=== PATIENT | male | born 1965 | race Caucasian/White ===

== ENCOUNTER 2022-10-06 10:03 | Emergency (ER) | payer OTHER ==
[2022-10-06] MEDS ORDERED: D50W 50 ml Abboject IV ONE ×2 (10:20→10:32)
[2022-10-06 10:25] LABS: Absolute Neutrophil Ct (ANC) 7.15 x10^3/uL (1.4-6.9); BASOPHIL % 0.2 % (0.0-0.4); Basophil (Absolute #) 0.02 x10^3/uL (0-0.4); Eosinophil % 0.7 % (0.00-5.0); Eosinophil (Absolute #) 0.06 x10^3/uL (0-0.5); Hematocrit 35.2 % (42-50); Hemoglobin 11.3 g/dL (12.5-18.0); IMMATURE GRAN # 0.07 x10^3u/L (0.00-0.03); IMMATURE GRAN % 0.8 % (0.00-0.4); Lymphocyte (Absolute #) 0.71 x10^3/uL (1.0-4.6); Lymphocytes % 8.1 % (24.0-44.0); Mean Cell Volume 89.6 fL (78-100); Mean Corpuscular Hemoglobin 28.8 pg (26-32); Mean Corpuscular Hgb Concent. 32.1 g/dL (32-36); Monocyte (Absolute #) 0.72 x10^3/uL (0.0-1.3); Monocytes % 8.2 % (0.0-12.0); Platelet Count 98 x10^3/uL (150-450); Red Blood Count 3.93 x10^6/uL (4.1-5.6); Red Cell Distribution Width 15.4 % (11.5-14.0); White Blood Count 8.7 x10^3/uL (4.0-10.5)
[2022-10-06 10:36] LABS: ALBUMIN 3.2 g/dL (3.5-5.0); ALKALINE PHOSPHATASE 267 U/L (38-126); ANION GAP 8.6 MEQ/L (5-15); BLOOD UREA NITROGEN 24 mg/dL (9-20); CHLORIDE 100 mmol/L (98-107); Calcium 8.8 mg/dL (8.4-10.2); Carbon Dioxide 33 mmol/L (22-30); EST GLOMERULAR FILTRATION RATE > 60.0 ML/MIN; Glucose 52 mg/dL (74-106); SGOT/AST 59 U/L (17-59); SGPT/ALT 107 U/L (0-50); SODIUM 138 mmol/L (137-145); Total Protein 5.9 g/dL (6.3-8.2)
[2022-10-06 10:42] LABS: INR 1.02 (0.8-3.0); PROTIME 11.1 SECONDS (9.4-12.5); PTT 24.2 SECONDS (25.1-36.5)
[2022-10-06 10:47] LABS: Potassium 2.7 mmol/L (3.5-5.1)
[2022-10-06] MEDS ORDERED: Klor Con PO ONE ×2 (10:47→10:53)
--- NOTE | 2022-10-06 10:55 | XRAY ---
Indication: Loss of consciousness. Confusion. Multiple contiguous axial images obtained through the head without contrast. Comparison: None Normal appearing brain parenchyma, ventricles, and bony calvarium. Visualized paranasal sinuses and mastoid air cells are clear. Impression: Normal CT head without contrast exam.
--- NOTE | 2022-10-06 11:13 | ERPHSYRPT ---
- History of Present Illness Source: patient, EMS, other (later ) Patient Subjective Stated Complaint: Hypoglycemia Triage Nursing Assessment: Patient brought into ED per EMS and transferred to bed per assist of 2. Patient A+O X3. Patient's skin pink, warm and dry. EMS reports getting call for increased confusion. Upon arrival patient was lying in kitchen floor. EMS noted his blood sugar was 62. EMS started IV and admininstered D50 a total of 21 ml. EMS noted blood sugar upon arrival to ER was 94. Patient states this am his blood sugar was 130 and think he was on floor for roughly 1 hour. Patient denies pain or discomfort. Patient recently D/C's from [facility] with dx of Cysto cerebral syndrome and has to straight cath at home every few hours. Physician History: 57 yo WM who was discharged from [facility] yesterday was found on floor by x1hour. EMS arrived and found blood glucose to be 64, so 1/2 amp of D50 given w improvement. Pt was admitted at [facility] x 1week for cystocerebral syndrome. He has a h/o DM1/HTN/prostatic hypertrophy/cirrhosis due to alcohol abuse in the past. Pt smokes <1ppd and has not drank alcohol x10 years. Timing/Duration: other (1hour) Deficits: no difficulties Baseline/Normal Cognition: alert oriented x 3 Current Cognition: alert oriented x 3 Associated Symptoms: denies symptoms, loss of consciousness Allergies/Adverse Reactions: morphine Allergy (Verified 10/06/22 10:07) Hx Influenza Vaccination/Date Given: Yes Hx Pneumococcal Vaccination/Date Given: No Immunizations Up to Date: Yes Travel Risk - International Travel Have you traveled outside of the country in past 3 weeks: No - Coronavirus Screening Are you exhibiting any of the following symptoms?: No Close contact with a COVID-19 positive Pt in past 14-21 Days: No - Vaccine Status Have you recieved a Covid-19 vaccination: No - Review of Systems Constitutional: No Symptoms Eyes: No Symptoms Ears, Nose, & Throat: No Symptoms Respiratory: No Symptoms Cardiac: No Symptoms Abdominal/Gastrointestinal: No Symptoms Genitourinary Symptoms: No Symptoms Musculoskeletal: No Symptoms Skin: No Symptoms Neurological: No Symptoms Psychological: No Symptoms Endocrine: No Symptoms Hematologic/Lymphatic: No Symptoms Immunological/Allergic: No Symptoms - Past Medical History Pertinent Past Medical History: Yes Cardiac History: Hypertension Endocrine Medical History: Diabetes Type II GI Medical History: Cirrhosis, GERD Male Reproductive Disorders: Other Other Medical History: BPH, Cirrohis, DM type 2, encephalopathy, GERD, HTN, Luchen Planus, Recently dx with Cystocerebral Syndrome has to straight cath often. - Past Surgical History Past Surgical History: Yes Neuro Surgical History: No Pertinent History Cardiac: No Pertinent History Respiratory: No Pertinent History Gastrointestinal: No Pertinent History Genitourinary: No Pertinent History Musculoskeletal: Orthopedic Surgery Male Surgical History: No Pertinent History Other Surgical History: Left knee. plate in neck - Social History Smoking Status: Current every day smoker How long have you smoked: years Exposure to second hand smoke: Yes Drug Use: none Patient Lives Alone: No - Nursing Vital Signs Nursing Vital Signs: Initial Vital Signs Temperature 96.4 F 10/06/22 10:09 Pulse Rate 86 10/06/22 10:09 Respiratory Rate 18 10/06/22 10:09 Blood Pressure 157/100 10/06/22 10:09 O2 Sat by Pulse Oximetry 98 10/06/22 10:09 Pain Scale Pain Intensity 0 Hypertensive - Luana Coma Scale Best Eye Response ([place]ana): (4) open spontaneously Best Verbal Response ([place]): (5) oriented Best Motor Response ([place]): (6) obeys commands Luana Total: 15 - Physical Exam General Appearance: no apparent distress Eye Exam: bilateral eye: normal inspection, PERRL, EOMI Ears, Nose, Throat Exam: normal ENT inspection, TMs normal, pharynx normal, moist mucous membranes Neck Exam: normal inspection, non-tender, supple, full range of motion, No meningismus, No mass, No Brudzinski, No Kernig's Respiratory: normal breath sounds, lungs clear, airway intact Cardiovascular: regular rate/rhythm, normal heart sounds, normal peripheral pulses, capillary refill <2 sec, No murmur Gastrointestinal: soft, normal bowel sounds Back Exam: normal inspection, normal range of motion, No CVA tenderness, No vertebral tenderness Extremity Exam: normal inspection, normal range of motion Peripheral Pulses: carotid (R): 2+, carotid (L): 2+ Mental Status: alert, oriented x 3, 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 Exam: normal hearing, normal speech, PERRL Motor/Sensory: no motor deficit DTR: bicep (R): 2+, bicep (L): 2+ Skin Exam: ecchymosis (Scattered ecchymotic areas due to recent hospital stay) SpO2 Interpretation: normal SpO2: 98 O2 Delivery: Room Air - Course Nursing assessment & vital signs reviewed: Yes EKG Interpreted by Me: RATE (NSR/Prolonged QTc/Nonspecific ST changes) - CT Exams Head CT Interpretation: Discussed w/radiologist (CT head neg per Rad) Ordered Tests: Active Orders 24 hr Category Date Time Status EKG-ER Only STAT Care 10/06/22 10:05 Completed White [Catheter-[place] White] STAT Care 10/06/22 13:59 Completed POCT Glucose Check STAT Care 10/06/22 10:23 Completed HEAD WITHOUT CONTRAST [CT] Stat Exams 10/06/22 10:07 Completed Alcohol [ETHYL ALCOHOL] Stat Lab 10/06/22 11:17 Completed CBC W DIFF Stat Lab 10/06/22 10:20 Completed CK (IN-HOUSE) [CK-Creatinine Phosphokinase] Stat Lab 10/06/22 10:46 Completed CMP Stat Lab 10/06/22 10:20 Completed CULTURE,URINE Stat Lab 10/06/22 10:36 Received D-DIMER QUANTITATIVE Stat Lab 10/06/22 11:27 Completed Lactic Acid Stat Lab 10/06/22 10:25 Completed POCT GLUCOSE Stat Lab 10/06/22 12:13 Completed POCT GLUCOSE Stat Lab 10/06/22 13:55 Completed PROTIME WITH INR Stat Lab 10/06/22 10:20 Completed PTT Stat Lab 10/06/22 10:20 Completed TROPONIN Q4H Lab 10/06/22 10:20 Completed TROPONIN Q4H Lab 10/06/22 12:47 Completed TROPONIN Q4H Lab 10/06/22 18:15 Ordered UA W/RFX UR CULTURE Stat Lab 10/06/22 10:36 Completed Urine Triage Profile Stat Lab 10/06/22 10:36 Completed Medication Summary Discontinued Medications Generic Name Dose Route Start Last Admin Trade Name Freq PRN Reason Stop Dose Admin Dextrose Confirm 10/06/22 10:20 Dextrose 50%-Water 50 Ml Abboject Administered 10/06/22 10:21 Dose 50 ml IV .STK-MED ONE Dextrose 50 ml 10/06/22 10:32 10/06/22 10:24 Dextrose 50%-Water 50 Ml Abboject IV 10/06/22 10:33 50 ml STAT ONE Administration Potassium Chloride 40 meq 10/06/22 10:47 10/06/22 10:55 Potassium Chloride Tab 10 Meq Tab PO 10/06/22 10:48 40 meq STAT ONE Administration Potassium Chloride Confirm 10/06/22 10:53 Potassium Chloride Tab 10 Meq Tab Administered 10/06/22 10:54 Dose 40 meq PO .STK-MED ONE Lab/Rad Data: Laboratory Result Diagrams 10/06/22 10:20 10/06/22 10:20 Laboratory Results 10/06/22 10/06/22 10/06/22 Range/Units 13:55 12:47 12:13 WBC (4.0-10.5) x10^3/uL RBC (4.1-5.6) x10^6/uL Hgb (12.5-18.0) g/dL Hct (42-50) % MCV (78-100) fL MCH (26-32) pg MCHC (32-36) g/dL RDW (11.5-14.0) % Plt Count (150-450) x10^3/uL MPV (7.5-11.0) fL Gran % (36.0-66.0) % Immature Gran % (Auto) (0.00-0.4) % Nucleat RBC Rel Count (0.00-0.1) % Eos # (Auto) (0-0.5) x10^3/uL Immature Gran # (Auto) (0.00-0.03) x10^3u/L Absolute Lymphs (auto) (1.0-4.6) x10^3/uL Absolute Monos (auto) (0.0-1.3) x10^3/uL Absolute Nucleated RBC (0.00-0.01) x10^3u/L Lymphocytes % (24.0-44.0) % Monocytes % (0.0-12.0) % Eosinophils % (0.00-5.0) % Basophils % (0.0-0.4) % Absolute Granulocytes (1.4-6.9) x10^3/uL Basophils # (0-0.4) x10^3/uL PT (9.4-12.5) SECONDS INR (0.8-3.0) APTT (25.1-36.5) SECONDS D-Dimer (0.0-0.50) mg/L Sodium (137-145) mmol/L Potassium (3.5-5.1) mmol/L Chloride (98-107) mmol/L Carbon Dioxide (22-30) mmol/L Anion Gap (5-15) MEQ/L BUN (9-20) mg/dL Creatinine (0.66-1.25) mg/dL Estimated GFR ML/MIN Glucose (74-106) mg/dL POC Glucometer 121 H 169 H (74 to 106) mg/dL Lactic Acid (0.4-2.0) Calcium (8.4-10.2) mg/dL Total Bilirubin (0.2-1.3) mg/dL AST (17-59) U/L ALT (0-50) U/L Alkaline Phosphatase (38-126) U/L Ammonia (9-30) umol/L Creatine Kinase (55-170) U/L Troponin I 0.047 H* (0.000-0.034) ng/mL Serum Total Protein (6.3-8.2) g/dL Albumin (3.5-5.0) g/dL Urine Color (Yellow) Urine Appearance (Clear) Urine pH (4.6-8.0) Ur Specific [place] (1.005-1.030) Urine Protein (Negative) Urine Glucose (UA) (Negative) mg/dL Urine Ketones (Negative) Urine Blood (Negative) Urine Nitrite (Negative) Urine Bilirubin (Negative) Urine Urobilinogen (0.2) mg/dL Ur Leukocyte Esterase (Negative) U Hyaline Cast (Auto) (0-2) /LPF Urine Microscopic RBC (0-5) /HPF Urine Microscopic WBC (0-5) /HPF Ur Epithelial Cells (None Seen) /HPF Urine Bacteria (None Seen) /HPF Urine Culture Reflexed (NO) Urine Opiates Level (NEGATIVE) Ur Methadone (NEGATIVE) Urine Barbiturates (NEGATIVE) Ur Phencyclidine (PCP) (NEGATIVE) Urine Amphetamine (NEGATIVE) U Benzodiazepine Level (NEGATIVE) Urine Cocaine (NEGATIVE) Urine Marijuana (THC) (NEGATIVE) Ethyl Alcohol (0-10) mg/dL Slides for Path Review 10/06/22 10/06/22 10/06/22 Range/Units 11:27 11:17 11:17 WBC (4.0-10.5) x10^3/uL RBC (4.1-5.6) x10^6/uL Hgb (12.5-18.0) g/dL Hct (42-50) % MCV (78-100) fL MCH (26-32) pg MCHC (32-36) g/dL RDW (11.5-14.0) % Plt Count (150-450) x10^3/uL MPV (7.5-11.0) fL Gran % (36.0-66.0) % Immature Gran % (Auto) (0.00-0.4) % Nucleat RBC Rel Count (0.00-0.1) % Eos # (Auto) (0-0.5) x10^3/uL Immature Gran # (Auto) (0.00-0.03) x10^3u/L Absolute Lymphs (auto) (1.0-4.6) x10^3/uL Absolute Monos (auto) (0.0-1.3) x10^3/uL Absolute Nucleated RBC (0.00-0.01) x10^3u/L Lymphocytes % (24.0-44.0) % Monocytes % (0.0-12.0) % Eosinophils % (0.00-5.0) % Basophils % (0.0-0.4) % Absolute Granulocytes (1.4-6.9) x10^3/uL Basophils # (0-0.4) x10^3/uL PT (9.4-12.5) SECONDS INR (0.8-3.0) APTT (25.1-36.5) SECONDS D-Dimer 0.42 (0.0-0.50) mg/L Sodium (137-145) mmol/L Potassium (3.5-5.1) mmol/L Chloride (98-107) mmol/L Carbon Dioxide (22-30) mmol/L Anion Gap (5-15) MEQ/L BUN (9-20) mg/dL Creatinine (0.66-1.25) mg/dL Estimated GFR ML/MIN Glucose (74-106) mg/dL POC Glucometer (74 to 106) mg/dL Lactic Acid (0.4-2.0) Calcium (8.4-10.2) mg/dL Total Bilirubin (0.2-1.3) mg/dL AST (17-59) U/L ALT (0-50) U/L Alkaline Phosphatase (38-126) U/L Ammonia 12 (9-30) umol/L Creatine Kinase (55-170) U/L Troponin I (0.000-0.034) ng/mL Serum Total Protein (6.3-8.2) g/dL Albumin (3.5-5.0) g/dL Urine Color (Yellow) Urine Appearance (Clear) Urine pH (4.6-8.0) Ur Specific [place] (1.005-1.030) Urine Protein (Negative) Urine Glucose (UA) (Negative) mg/dL Urine Ketones (Negative) Urine Blood (Negative) Urine Nitrite (Negative) Urine Bilirubin (Negative) Urine Urobilinogen (0.2) mg/dL Ur Leukocyte Esterase (Negative) U Hyaline Cast (Auto) (0-2) /LPF Urine Microscopic RBC (0-5) /HPF Urine Microscopic WBC (0-5) /HPF Ur Epithelial Cells (None Seen) /HPF Urine Bacteria (None Seen) /HPF Urine Culture Reflexed (NO) Urine Opiates Level (NEGATIVE) Ur Methadone (NEGATIVE) Urine Barbiturates (NEGATIVE) Ur Phencyclidine (PCP) (NEGATIVE) Urine Amphetamine (NEGATIVE) U Benzodiazepine Level (NEGATIVE) Urine Cocaine (NEGATIVE) Urine Marijuana (THC) (NEGATIVE) Ethyl Alcohol < 10 (0-10) mg/dL Slides for Path Review 10/06/22 10/06/22 10/06/22 Range/Units 10:46 10:36 10:36 WBC (4.0-10.5) x10^3/uL RBC (4.1-5.6) x10^6/uL Hgb (12.5-18.0) g/dL Hct (42-50) % MCV (78-100) fL MCH (26-32) pg MCHC (32-36) g/dL RDW (11.5-14.0) % Plt Count (150-450) x10^3/uL MPV (7.5-11.0) fL Gran % (36.0-66.0) % Immature Gran % (Auto) (0.00-0.4) % Nucleat RBC Rel Count (0.00-0.1) % Eos # (Auto) (0-0.5) x10^3/uL Immature Gran # (Auto) (0.00-0.03) x10^3u/L Absolute Lymphs (auto) (1.0-4.6) x10^3/uL Absolute Monos (auto) (0.0-1.3) x10^3/uL Absolute Nucleated RBC (0.00-0.01) x10^3u/L Lymphocytes % (24.0-44.0) % Monocytes % (0.0-12.0) % Eosinophils % (0.00-5.0) % Basophils % (0.0-0.4) % Absolute Granulocytes (1.4-6.9) x10^3/uL Basophils # (0-0.4) x10^3/uL PT (9.4-12.5) SECONDS INR (0.8-3.0) APTT (25.1-36.5) SECONDS D-Dimer (0.0-0.50) mg/L Sodium (137-145) mmol/L Potassium (3.5-5.1) mmol/L Chloride (98-107) mmol/L Carbon Dioxide (22-30) mmol/L Anion Gap (5-15) MEQ/L BUN (9-20) mg/dL Creatinine (0.66-1.25) mg/dL Estimated GFR ML/MIN Glucose (74-106) mg/dL POC Glucometer (74 to 106) mg/dL Lactic Acid (0.4-2.0) Calcium (8.4-10.2) mg/dL Total Bilirubin (0.2-1.3) mg/dL AST (17-59) U/L ALT (0-50) U/L Alkaline Phosphatase (38-126) U/L Ammonia (9-30) umol/L Creatine Kinase 95 (55-170) U/L Troponin I (0.000-0.034) ng/mL Serum Total Protein (6.3-8.2) g/dL Albumin (3.5-5.0) g/dL Urine Color Yellow (Yellow) Urine Appearance Clear (Clear) Urine pH 5.5 (4.6-8.0) Ur Specific [place] 1.020 (1.005-1.030) Urine Protein 30 (Negative) Urine Glucose (UA) 500 A (Negative) mg/dL Urine Ketones Negative (Negative) Urine Blood Small A (Negative) Urine Nitrite Negative (Negative) Urine Bilirubin Negative (Negative) Urine Urobilinogen 1.0 A (0.2) mg/dL Ur Leukocyte Esterase Small A (Negative) U Hyaline Cast (Auto) 3-5 A (0-2) /LPF Urine Microscopic RBC 6-10 A (0-5) /HPF Urine Microscopic WBC 6-10 A (0-5) /HPF Ur Epithelial Cells None Seen (None Seen) /HPF Urine Bacteria None Seen (None Seen) /HPF Urine Culture Reflexed YES (NO) Urine Opiates Level POSITIVE (NEGATIVE) Ur Methadone NEGATIVE (NEGATIVE) Urine Barbiturates NEGATIVE (NEGATIVE) Ur Phencyclidine (PCP) NEGATIVE (NEGATIVE) Urine Amphetamine NEGATIVE (NEGATIVE) U Benzodiazepine Level NEGATIVE (NEGATIVE) Urine Cocaine NEGATIVE (NEGATIVE) Urine Marijuana (THC) NEGATIVE (NEGATIVE) Ethyl Alcohol (0-10) mg/dL Slides for Path Review 10/06/22 10/06/22 10/06/22 Range/Units 10:25 10:20 10:20 WBC (4.0-10.5) x10^3/uL RBC (4.1-5.6) x10^6/uL Hgb (12.5-18.0) g/dL Hct (42-50) % MCV (78-100) fL MCH (26-32) pg MCHC (32-36) g/dL RDW (11.5-14.0) % Plt Count (150-450) x10^3/uL MPV (7.5-11.0) fL Gran % (36.0-66.0) % Immature Gran % (Auto) (0.00-0.4) % Nucleat RBC Rel Count (0.00-0.1) % Eos # (Auto) (0-0.5) x10^3/uL Immature Gran # (Auto) (0.00-0.03) x10^3u/L Absolute Lymphs (auto) (1.0-4.6) x10^3/uL Absolute Monos (auto) (0.0-1.3) x10^3/uL Absolute Nucleated RBC (0.00-0.01) x10^3u/L Lymphocytes % (24.0-44.0) % Monocytes % (0.0-12.0) % Eosinophils % (0.00-5.0) % Basophils % (0.0-0.4) % Absolute Granulocytes (1.4-6.9) x10^3/uL Basophils # (0-0.4) x10^3/uL PT 11.1 (9.4-12.5) SECONDS INR 1.02 (0.8-3.0) APTT 24.2 L (25.1-36.5) SECONDS D-Dimer (0.0-0.50) mg/L Sodium (137-145) mmol/L Potassium (3.5-5.1) mmol/L Chloride (98-107) mmol/L Carbon Dioxide (22-30) mmol/L Anion Gap (5-15) MEQ/L BUN (9-20) mg/dL Creatinine (0.66-1.25) mg/dL Estimated GFR ML/MIN Glucose (74-106) mg/dL POC Glucometer (74 to 106) mg/dL Lactic Acid 1.1 (0.4-2.0) Calcium (8.4-10.2) mg/dL Total Bilirubin (0.2-1.3) mg/dL AST (17-59) U/L ALT (0-50) U/L Alkaline Phosphatase (38-126) U/L Ammonia (9-30) umol/L Creatine Kinase (55-170) U/L Troponin I 0.055 H* (0.000-0.034) ng/mL Serum Total Protein (6.3-8.2) g/dL Albumin (3.5-5.0) g/dL Urine Color (Yellow) Urine Appearance (Clear) Urine pH (4.6-8.0) Ur Specific [place] (1.005-1.030) Urine Protein (Negative) Urine Glucose (UA) (Negative) mg/dL Urine Ketones (Negative) Urine Blood (Negative) Urine Nitrite (Negative) Urine Bilirubin (Negative) Urine Urobilinogen (0.2) mg/dL Ur Leukocyte Esterase (Negative) U Hyaline Cast (Auto) (0-2) /LPF Urine Microscopic RBC (0-5) /HPF Urine Microscopic WBC (0-5) /HPF Ur Epithelial Cells (None Seen) /HPF Urine Bacteria (None Seen) /HPF Urine Culture Reflexed (NO) Urine Opiates Level (NEGATIVE) Ur Methadone (NEGATIVE) Urine Barbiturates (NEGATIVE) Ur Phencyclidine (PCP) (NEGATIVE) Urine Amphetamine (NEGATIVE) U Benzodiazepine Level (NEGATIVE) Urine Cocaine (NEGATIVE) Urine Marijuana (THC) (NEGATIVE) Ethyl Alcohol (0-10) mg/dL Slides for Path Review 10/06/22 10/06/22 Range/Units 10:20 10:20 WBC 8.7 (4.0-10.5) x10^3/uL RBC 3.93 L (4.1-5.6) x10^6/uL Hgb 11.3 L (12.5-18.0) g/dL Hct 35.2 L (42-50) % MCV 89.6 (78-100) fL MCH 28.8 (26-32) pg MCHC 32.1 (32-36) g/dL RDW 15.4 H (11.5-14.0) % Plt Count 98 L (150-450) x10^3/uL MPV 11.0 (7.5-11.0) fL Gran % 82.0 H (36.0-66.0) % Immature Gran % (Auto) 0.8 H (0.00-0.4) % Nucleat RBC Rel Count 0.0 (0.00-0.1) % Eos # (Auto) 0.06 (0-0.5) x10^3/uL Immature Gran # (Auto) 0.07 H (0.00-0.03) x10^3u/L Absolute Lymphs (auto) 0.71 L (1.0-4.6) x10^3/uL Absolute Monos (auto) 0.72 (0.0-1.3) x10^3/uL Absolute Nucleated RBC 0.00 (0.00-0.01) x10^3u/L Lymphocytes % 8.1 L (24.0-44.0) % Monocytes % 8.2 (0.0-12.0) % Eosinophils % 0.7 (0.00-5.0) % Basophils % 0.2 (0.0-0.4) % Absolute Granulocytes 7.15 H (1.4-6.9) x10^3/uL Basophils # 0.02 (0-0.4) x10^3/uL PT (9.4-12.5) SECONDS INR (0.8-3.0) APTT (25.1-36.5) SECONDS D-Dimer (0.0-0.50) mg/L Sodium 138 (137-145) mmol/L Potassium 2.7 L* (3.5-5.1) mmol/L Chloride 100 (98-107) mmol/L Carbon Dioxide 33 H (22-30) mmol/L Anion Gap 8.6 (5-15) MEQ/L BUN 24 H (9-20) mg/dL Creatinine 1.30 H (0.66-1.25) mg/dL Estimated GFR > 60.0 ML/MIN Glucose 52 L (74-106) mg/dL POC Glucometer (74 to 106) mg/dL Lactic Acid (0.4-2.0) Calcium 8.8 (8.4-10.2) mg/dL Total Bilirubin 1.70 H (0.2-1.3) mg/dL AST 59 (17-59) U/L ALT 107 H (0-50) U/L Alkaline Phosphatase 267 H (38-126) U/L Ammonia (9-30) umol/L Creatine Kinase (55-170) U/L Troponin I (0.000-0.034) ng/mL Serum Total Protein 5.9 L (6.3-8.2) g/dL Albumin 3.2 L (3.5-5.0) g/dL Urine Color (Yellow) Urine Appearance (Clear) Urine pH (4.6-8.0) Ur Specific [place] (1.005-1.030) Urine Protein (Negative) Urine Glucose (UA) (Negative) mg/dL Urine Ketones (Negative) Urine Blood (Negative) Urine Nitrite (Negative) Urine Bilirubin (Negative) Urine Urobilinogen (0.2) mg/dL Ur Leukocyte Esterase (Negative) U Hyaline Cast (Auto) (0-2) /LPF Urine Microscopic RBC (0-5) /HPF Urine Microscopic WBC (0-5) /HPF Ur Epithelial Cells (None Seen) /HPF Urine Bacteria (None Seen) /HPF Urine Culture Reflexed (NO) Urine Opiates Level (NEGATIVE) Ur Methadone (NEGATIVE) Urine Barbiturates (NEGATIVE) Ur Phencyclidine (PCP) (NEGATIVE) Urine Amphetamine (NEGATIVE) U Benzodiazepine Level (NEGATIVE) Urine Cocaine (NEGATIVE) Urine Marijuana (THC) (NEGATIVE) Ethyl Alcohol (0-10) mg/dL Slides for Path Review YES - Progress Progress Note: 10/06/22 15:52 Nursing note and vital signs reviewed No food or housing insecurities noted Additional history per EMS and later All lab results reviewed and shared w pt/ Glucose dropped shortly after arriving in ER, so 1amp D50 given Glucose monitored throughout visit wo further hypoglycemia CT head result reviewed and shared w pt/ Serial neuro exams WNL Pt/ refused obs admit due to hypoglycemia/elevated troponin White placed at 's request. Pt was supposed to have one placed as an outpt. Pt discharged from [facility] on an antibiotic 10/06/22 15:59 Counseled pt/family regarding: lab results, diagnosis, need for follow-up, rad results Medical Desision Making - Independent Historian Additional History obtained from: Spouse - Diagnostic Testing Diagnostic test were ordered, analyzed, and reviewed by me: Yes Radiological Interpretation: Reviewed by me, Discussed w/ radiologist - Risk of complications The pt has a mod risk of morbidity or mortality based on: Need for prescription drug management - Departure Departure Disposition: Home Clinical Impression: Elevated troponin, Hypokalemia, Hypoglycemia Condition: Stable Critical Care Time: No Referrals: HOSPITAL,'S [Primary Care Provider] - Follow up/PCP as directed Instructions: Low Blood Sugar, Adult (DC) Additional Instructions: Follow up with your family MD in AM Watch glucose closely Return to ER for focal weakness/temperature greater than 100.5/persistent hypoglycemia
[2022-10-06 11:14] LABS: Slide Review 1 YES
[2022-10-06 11:23] LABS: Appearance Clear (Clear); Bacteria None Seen /HPF (None Seen); Bilirubin Negative (Negative); Blood Small (Negative); Epithelial Cells None Seen /HPF (None Seen); Glucose, Urine 500 mg/dL (Negative); Ketones Negative (Negative); Leukocyte Esterase Small (Negative); Nitrite Negative (Negative); Ph 5.5 (4.6-8.0); Protein,Urine Dip 30 (Negative)
[2022-10-06 11:29] LABS: ADD URINE CULTURE? YES (NO)
[2022-10-06 11:37] LABS: Amphetamine,Urine NEGATIVE (NEGATIVE); Barbiturate,Urine NEGATIVE (NEGATIVE); Benzodiazepine,Urine NEGATIVE (NEGATIVE); Cocaine,Urine NEGATIVE (NEGATIVE); Methadone,Urine NEGATIVE (NEGATIVE); Opiate,Urine POSITIVE (NEGATIVE); PCP,Urine NEGATIVE (NEGATIVE); THC,Urine NEGATIVE (NEGATIVE)
[2022-10-06 13:43] VITALS: BP 115/71
[2022-10-06 13:49] VITALS: O2SAT 98
[2022-10-06 13:50] VITALS: PULSE 77
== END 2022-10-06 14:11 | disposition home or self-care (01) ==
LOC: ED 10:03
DX: R77.8 Other specified abnormalities of plasma proteins (principal); E87.6 Hypokalemia; E10.649 Type 1 diabetes mellitus with hypoglycemia without coma; I10 Essential (primary) hypertension; Z28.310 Unvaccinated for COVID-19; Z72.0 Tobacco use
CPT/HCPCS: 36415; 51702; 70450; 80053; 80307; 81001; 82077; 82140; 82550; 82947; 83605; 84484; 85025; 85379; 85610; 85730; 87086; 93005; 96374; 99284; A9270-GY

== ENCOUNTER 2022-10-27 05:18 | Emergency (ER) | payer MEDICARE, OTHER ==
[2022-10-27] MEDS ORDERED: DEXTROSE 10% 250 ML 250 ML IV ONE (05:22)
[2022-10-27 05:52] LABS: Absolute Neutrophil Ct (ANC) 4.96 x10^3/uL (1.4-6.9); BASOPHIL % 0.1 % (0.0-0.4); Basophil (Absolute #) 0.01 x10^3/uL (0-0.4); Eosinophil % 1.8 % (0.00-5.0); Eosinophil (Absolute #) 0.12 x10^3/uL (0-0.5); Hematocrit 32.3 % (42-50); IMMATURE GRAN % 1.5 % (0.00-0.4); Lymphocyte (Absolute #) 0.92 x10^3/uL (1.0-4.6); Lymphocytes % 13.6 % (24.0-44.0); Mean Cell Volume 89.2 fL (78-100); Mean Corpuscular Hemoglobin 27.6 pg (26-32); Mean Platelet Volume 11.4 fL (7.5-11.0); Monocyte (Absolute #) 0.65 x10^3/uL (0.0-1.3); Monocytes % 9.6 % (0.0-12.0); Neutrophil % 73.4 % (36.0-66.0); Platelet Count 122 x10^3/uL (150-450); Red Blood Count 3.62 x10^6/uL (4.1-5.6); Red Cell Distribution Width 16.1 % (11.5-14.0); White Blood Count 6.8 x10^3/uL (4.0-10.5)
[2022-10-27 06:05] LABS: INR 1.05 (0.8-3.0); PROTIME 11.4 SECONDS (9.4-12.5)
[2022-10-27 06:06] LABS: ACETAMINOPHEN < 10 ug/ml (10-30); ALBUMIN 2.7 g/dL (3.5-5.0); ALKALINE PHOSPHATASE 179 U/L (38-126); ANION GAP 15.3 MEQ/L (5-15); BLOOD UREA NITROGEN 53 mg/dL (9-20); CHLORIDE 99 mmol/L (98-107); Calcium 8.8 mg/dL (8.4-10.2); Carbon Dioxide 19 mmol/L (22-30); Creatinine 1 1.87 mg/dL (0.66-1.25); EST GLOMERULAR FILTRATION RATE 39.6 ML/MIN; ETHYL ALCOHOL < 10 mg/dL (0-10); Glucose 143 mg/dL (74-106); Potassium 4.3 mmol/L (3.5-5.1); SALICYLATE < 1.0 mg/dL (2-20); SGOT/AST 38 U/L (17-59); SGPT/ALT 39 U/L (0-50); SODIUM 129 mmol/L (137-145); Total Protein 5.2 g/dL (6.3-8.2)
[2022-10-27 06:20] VITALS: TEMP 95.7
[2022-10-27 06:42] LABS: T4 (Thyroxine) 6.73 ug/dL (5.53-10.96); TSH, 3RD Generation 0.07 mIU/L (0.47-4.68)
--- NOTE | 2022-10-27 06:56 | XRAY ---
CLINICAL HISTORY:altered mental status COMPARISON:10/06/2022. TECHNIQUE:Axial non-contrast CT scan of the brain was performed from the skull base to the high parietal region. CTDI: 53.92, DLP: 1070.09. FINDINGS: No intracerebral or extra axial hematoma. No established territorial infarction identified. No focal parenchymal abnormalities are demonstrated. Wheeler-white matter differentiation is maintained. No midline shifts or deformity. Normal configuration of the cerebral ventricles. Normal CT appearance of the posterior fossa structures namely the cerebellar hemispheres, brainstem and cerebellar peduncles. The IACs are unremarkable. The cerebello-pontine angles are clear. The pituitary gland, the pineal gland, the optic chiasm is unremarkable. The osseous structures in the skull base are unremarkable. No definite calvarium fractures. Deviation of nasal septum is noted towards the right side with nasal spur seen. Scanned paranasal sinuses are clear. [place] bullosa noted bilaterally. IMPRESSION: 1. No established territorial infarction or intracranial hemorrhage seen. 2. No significant abnormality identified. 3. No interval change. Electronically Signed by: Fabien Perez MD. (10/27/2022 05:55:32 PRODUCTIVITY ENGINEER)
--- NOTE | 2022-10-27 07:04 | ERPHSYRPT ---
- History of Present Illness Time Seen by Provider: 10/27/22 06:00 Source: patient, family, EMS Exam Limitations: clinical condition Patient Subjective Stated Complaint: pt unresponsive upon arrival, see treatments prior to arrival listed above. EMS only able to tell us that he is allergic to morphine, has liver cirrhosis, and T2DM. EMS unable to verbalize what medications pt is on or further medical history but report that spouse en route to hospital. Triage Nursing Assessment: pt arrived into room 4 via EMS stretcher and transferred onto ED cot as full transfer per 3 staff. pts eyes are closed, agonal, snoring, pursed lip breathing. skin is cool, clammy, and slightly jaundiced in color. pt only grunts with sternal rub, BS result 59, firm sternal rub results in more moaning and opens his eyes momentarily if loudly told to open his eyes but then closes them right away. bilat radial and pedal pulses palpable and regular. heart sounds normal and regular, abd soft, nontender, nondistended, with positive bowel sounds in all quadrants. lung sounds are clear and diminished anterior in all kerns. Physician History: This is a 57-year-old white male patient who receives his primary medical care at the [facility] and has history of cystocerebral syndrome as well as diabetes and lichen planus. Patient was brought to the emergency room by paramedics who provided independent medical history. Patient's spouse arrived and also provided another source of independent medical history. Patient was brought to the emergency department secondary to altered mental status. Patient is a diabetic and took his short acting and long-acting insulin at 2100 last evening with the intention of eating soon after. However, his spouse said he fell asleep and forgot to eat. He was difficult to wake up this morning. The spouse checked the blood sugar and the monitor read "critically low". She gave him a glucagon tablet. She called the paramedics. The paramedics brought the patient to the emergency department. Bedside blood sugar obtained was 59. Patient then was started on D10 intravenously after he was evaluated by Dr. Lazaro and Dr. Lazaro inputted orders on this patient. He did not fill out the medical chart. I arrived at 0600 and reevaluated the patient after he returned from the CAT scan. Patient now is awake alert and oriented. His bedside blood sugar levels 179. Patient is hungry and thirsty. He denies chest pain, he denies shortness of breath, he has no abdominal pain. He has no nausea no vomiting. Patient has these episodes frequently. He is supposed to self cath. He does not always do this and at times his cystocerebral syndrome kicks in and he becomes disoriented and has decreased responsiveness as well. White catheter was placed before I arrived as well and he had a significant urine output. Timing/Duration: today, improved Severity: moderate Modifying Factors: Improves With: nothing Associated Symptoms: denies symptoms Allergies/Adverse Reactions: morphine Allergy (Intermediate, Verified 10/27/22 05:27) Itching acetaminophen [From Tylenol] Adverse Reaction (Severe, Verified 10/27/22 05:27) Stomach Pain not allergic but cannot take due to liver failure. Hx Tetanus, Diphtheria Vaccination/Date Given: Yes Hx Influenza Vaccination/Date Given: Yes Hx Pneumococcal Vaccination/Date Given: No Immunizations Up to Date: Yes Travel Risk - International Travel Have you traveled outside of the country in past 3 weeks: No - Coronavirus Screening Are you exhibiting any of the following symptoms?: No Close contact with a COVID-19 positive Pt in past 14-21 Days: No - Vaccine Status Have you recieved a Covid-19 vaccination: No - Review of Systems Constitutional: No Symptoms Eyes: No Symptoms Ears, Nose, & Throat: No Symptoms Respiratory: No Symptoms Cardiac: No Symptoms Abdominal/Gastrointestinal: No Symptoms Genitourinary Symptoms: No Symptoms Musculoskeletal: No Symptoms Skin: No Symptoms Neurological: Lethargy (Prior to arrival and prior to my evaluation of him at 0600symptoms have resolved) Psychological: No Symptoms Endocrine: No Symptoms Hematologic/Lymphatic: No Symptoms Immunological/Allergic: No Symptoms All Other Systems: Reviewed and Negative - Past Medical History Pertinent Past Medical History: Yes Neurological History: No Pertinent History ENT History: No Pertinent History Cardiac History: Hypertension Respiratory History: No Pertinent History Endocrine Medical History: Diabetes Type II Musculoskeletal History: No Pertinent History GI Medical History: Cirrhosis, GERD History: No Pertinent History Psycho-Social History: Depression Male Reproductive Disorders: Other Other Medical History: BPH, Cirrohis, DM type 2, encephalopathy, GERD, HTN, Luchen Planus, Recently dx with Cystocerebral Syndrome has to straight cath often. - Past Surgical History Past Surgical History: Yes Neuro Surgical History: No Pertinent History Cardiac: No Pertinent History Respiratory: No Pertinent History Gastrointestinal: No Pertinent History Genitourinary: No Pertinent History Musculoskeletal: Orthopedic Surgery Male Surgical History: No Pertinent History Other Surgical History: Left knee. plate in neck - Social History Smoking Status: Current every day smoker How long have you smoked: 6yo Exposure to second hand smoke: Yes Drug Use: none Patient Lives Alone: No - Nursing Vital Signs Nursing Vital Signs: Initial Vital Signs Temperature 95.7 F 10/27/22 05:19 Pulse Rate 81 10/27/22 05:19 Respiratory Rate 13 10/27/22 05:19 Blood Pressure 109/63 10/27/22 05:19 O2 Sat by Pulse Oximetry 96 10/27/22 05:19 Pain Scale Pain Intensity 0 - Physical Exam General Appearance: no apparent distress, alert Eye Exam: PERRL/EOMI, eyes nml inspection Ears, Nose, Throat Exam: dry mucous membranes Neck Exam: normal inspection, non-tender, supple, full range of motion Respiratory Exam: normal breath sounds, lungs clear, airway intact, No chest tenderness, No respiratory distress Cardiovascular Exam: regular rate/rhythm, normal heart sounds, normal peripheral pulses Gastrointestinal/Abdomen Exam: soft, normal bowel sounds, No tenderness Rectal Exam: not done Back Exam: normal inspection, normal range of motion, No CVA tenderness, No vertebral tenderness Extremity Exam: normal inspection, normal range of motion, pelvis stable Neurologic Exam: alert, oriented x 3, cooperative, yard switcher II-XII nml as tested, normal mood/affect, nml cerebellar function, nml station & gait, sensation nml Skin Exam: normal color, warm, dry Lymphatic Exam: No adenopathy SpO2 Interpretation: normal SpO2: 98 O2 Delivery: Room Air - Course Nursing assessment & vital signs reviewed: Yes Ordered Tests: Active Orders 24 hr Category Date Time Status Clean Catch Urine Specimen STAT Care 10/27/22 05:27 Active Pulse Oximetry (ED) STAT Care 10/27/22 05:25 Active Tele-Health Consult ROUTINE Cons 10/27/22 05:36 Active HEAD WITHOUT CONTRAST [CT] Stat Exams 10/27/22 05:26 Completed ACETAMINOPHEN Stat Lab 10/27/22 05:52 Completed CBC W DIFF Stat Lab 10/27/22 05:52 Completed CMP Stat Lab 10/27/22 05:52 Completed ETHYL ALCOHOL Stat Lab 10/27/22 05:52 Completed Lactic Acid Stat Lab 10/27/22 05:47 Completed POCT GLUCOSE Stat Lab 10/27/22 05:32 Completed PT INR [PROTIME WITH INR] Stat Lab 10/27/22 05:52 Completed SALICYLATE Stat Lab 10/27/22 05:52 Completed T4 (Thyroxine) Stat Lab 10/27/22 05:52 Completed TSH [TSH, 3RD Generation] Stat Lab 10/27/22 05:52 Completed UA W/RFX UR CULTURE Stat Lab 10/27/22 06:17 Ordered Urine Triage Profile Stat Lab 10/27/22 06:17 Ordered Lab/Rad Data: Laboratory Result Diagrams 10/27/22 05:52 10/27/22 05:52 Laboratory Results 10/27/22 10/27/22 10/27/22 Range/Units 05:53 05:52 05:52 WBC (4.0-10.5) x10^3/uL RBC (4.1-5.6) x10^6/uL Hgb (12.5-18.0) g/dL Hct (42-50) % MCV (78-100) fL MCH (26-32) pg MCHC (32-36) g/dL RDW (11.5-14.0) % Plt Count (150-450) x10^3/uL MPV (7.5-11.0) fL Gran % (36.0-66.0) % Immature Gran % (Auto) (0.00-0.4) % Nucleat RBC Rel Count (0.00-0.1) % Eos # (Auto) (0-0.5) x10^3/uL Immature Gran # (Auto) (0.00-0.03) x10^3u/L Absolute Lymphs (auto) (1.0-4.6) x10^3/uL Absolute Monos (auto) (0.0-1.3) x10^3/uL Absolute Nucleated RBC (0.00-0.01) x10^3u/L Lymphocytes % (24.0-44.0) % Monocytes % (0.0-12.0) % Eosinophils % (0.00-5.0) % Basophils % (0.0-0.4) % Absolute Granulocytes (1.4-6.9) x10^3/uL Basophils # (0-0.4) x10^3/uL PT 11.4 (9.4-12.5) SECONDS INR 1.05 (0.8-3.0) Sodium (137-145) mmol/L Potassium (3.5-5.1) mmol/L Chloride (98-107) mmol/L Carbon Dioxide (22-30) mmol/L Anion Gap (5-15) MEQ/L BUN (9-20) mg/dL Creatinine (0.66-1.25) mg/dL Estimated GFR ML/MIN Glucose (74-106) mg/dL POC Glucometer (74 to 106) mg/dL Lactic Acid (0.4-2.0) Calcium (8.4-10.2) mg/dL Total Bilirubin (0.2-1.3) mg/dL AST (17-59) U/L ALT (0-50) U/L Alkaline Phosphatase (38-126) U/L Ammonia 56 H (9-30) umol/L Serum Total Protein (6.3-8.2) g/dL Albumin (3.5-5.0) g/dL Thyroxine (T4) 6.73 (5.53-10.96) ug/dL TSH 3rd Generation 0.070 L (0.47-4.68) mIU/L Salicylates (2-20) mg/dL Acetaminophen (10-30) ug/ml Ethyl Alcohol (0-10) mg/dL 10/27/22 10/27/22 10/27/22 Range/Units 05:52 05:52 05:47 WBC 6.8 (4.0-10.5) x10^3/uL RBC 3.62 L (4.1-5.6) x10^6/uL Hgb 10.0 L (12.5-18.0) g/dL Hct 32.3 L (42-50) % MCV 89.2 (78-100) fL MCH 27.6 (26-32) pg MCHC 31.0 L (32-36) g/dL RDW 16.1 H (11.5-14.0) % Plt Count 122 L (150-450) x10^3/uL MPV 11.4 H (7.5-11.0) fL Gran % 73.4 H (36.0-66.0) % Immature Gran % (Auto) 1.5 H (0.00-0.4) % Nucleat RBC Rel Count 0.0 (0.00-0.1) % Eos # (Auto) 0.12 (0-0.5) x10^3/uL Immature Gran # (Auto) 0.10 H (0.00-0.03) x10^3u/L Absolute Lymphs (auto) 0.92 L (1.0-4.6) x10^3/uL Absolute Monos (auto) 0.65 (0.0-1.3) x10^3/uL Absolute Nucleated RBC 0.00 (0.00-0.01) x10^3u/L Lymphocytes % 13.6 L (24.0-44.0) % Monocytes % 9.6 (0.0-12.0) % Eosinophils % 1.8 (0.00-5.0) % Basophils % 0.1 (0.0-0.4) % Absolute Granulocytes 4.96 (1.4-6.9) x10^3/uL Basophils # 0.01 (0-0.4) x10^3/uL PT (9.4-12.5) SECONDS INR (0.8-3.0) Sodium 129 L (137-145) mmol/L Potassium 4.3 (3.5-5.1) mmol/L Chloride 99 (98-107) mmol/L Carbon Dioxide 19 L (22-30) mmol/L Anion Gap 15.3 H (5-15) MEQ/L BUN 53 H (9-20) mg/dL Creatinine 1.87 H (0.66-1.25) mg/dL Estimated GFR 39.6 ML/MIN Glucose 143 H (74-106) mg/dL POC Glucometer (74 to 106) mg/dL Lactic Acid 1.8 (0.4-2.0) Calcium 8.8 (8.4-10.2) mg/dL Total Bilirubin 1.00 (0.2-1.3) mg/dL AST 38 (17-59) U/L ALT 39 (0-50) U/L Alkaline Phosphatase 179 H (38-126) U/L Ammonia (9-30) umol/L Serum Total Protein 5.2 L (6.3-8.2) g/dL Albumin 2.7 L (3.5-5.0) g/dL Thyroxine (T4) (5.53-10.96) ug/dL TSH 3rd Generation (0.47-4.68) mIU/L Salicylates < 1.0 L (2-20) mg/dL Acetaminophen < 10 L (10-30) ug/ml Ethyl Alcohol < 10 (0-10) mg/dL 10/27/22 Range/Units 05:32 WBC (4.0-10.5) x10^3/uL RBC (4.1-5.6) x10^6/uL Hgb (12.5-18.0) g/dL Hct (42-50) % MCV (78-100) fL MCH (26-32) pg MCHC (32-36) g/dL RDW (11.5-14.0) % Plt Count (150-450) x10^3/uL MPV (7.5-11.0) fL Gran % (36.0-66.0) % Immature Gran % (Auto) (0.00-0.4) % Nucleat RBC Rel Count (0.00-0.1) % Eos # (Auto) (0-0.5) x10^3/uL Immature Gran # (Auto) (0.00-0.03) x10^3u/L Absolute Lymphs (auto) (1.0-4.6) x10^3/uL Absolute Monos (auto) (0.0-1.3) x10^3/uL Absolute Nucleated RBC (0.00-0.01) x10^3u/L Lymphocytes % (24.0-44.0) % Monocytes % (0.0-12.0) % Eosinophils % (0.00-5.0) % Basophils % (0.0-0.4) % Absolute Granulocytes (1.4-6.9) x10^3/uL Basophils # (0-0.4) x10^3/uL PT (9.4-12.5) SECONDS INR (0.8-3.0) Sodium (137-145) mmol/L Potassium (3.5-5.1) mmol/L Chloride (98-107) mmol/L Carbon Dioxide (22-30) mmol/L Anion Gap (5-15) MEQ/L BUN (9-20) mg/dL Creatinine (0.66-1.25) mg/dL Estimated GFR ML/MIN Glucose (74-106) mg/dL POC Glucometer 179 H (74 to 106) mg/dL Lactic Acid (0.4-2.0) Calcium (8.4-10.2) mg/dL Total Bilirubin (0.2-1.3) mg/dL AST (17-59) U/L ALT (0-50) U/L Alkaline Phosphatase (38-126) U/L Ammonia (9-30) umol/L Serum Total Protein (6.3-8.2) g/dL Albumin (3.5-5.0) g/dL Thyroxine (T4) (5.53-10.96) ug/dL TSH 3rd Generation (0.47-4.68) mIU/L Salicylates (2-20) mg/dL Acetaminophen (10-30) ug/ml Ethyl Alcohol (0-10) mg/dL - Progress Progress: improved Progress Note: 10/27/22 07:15 This patient's medical issue is 1 of moderate complexity. Level complexity in the work-up performed is based on review of the patient's past medical history, review of the patient's medication list, review of the patient's drug allergy list, history of present illness and physical findings on examination. This patient work-up includes CT scan of the head, urinalysis, CBC, CMP, placement of an intravenous line with infusion of D10 fluid. I reviewed the results of the CT scan as well as the work-up performed. I discussed the findings with the patient and his spouse. I think this patient's issue is more of a hypoglycemia episode secondary to him taking his short and long-acting insulin late at night without eating before or after. He went right to sleep. There may be some contribution of his distended bladder involved with his neurological state. Catheter was placed in a significant amount of urine was removed. Both of these conditions have resolved. His neurologic status not baseline per patient and per patient's spouse. The CT scan of the head without contrast shows no acute intracranial abnormality. I do not believe this patient requires a neurology evaluation. He has this issue often. He will be referred back to his primary c are provider, neurologist and urologist. Counseled pt/family regarding: lab results, diagnosis, need for follow-up, rad results Medical Desision Making - Independent Historian Additional History obtained from: Spouse, Peeled Potato Inspector/EMT - Diagnostic Testing Diagnostic test were ordered, analyzed, and reviewed by me: Yes Radiological Interpretation: Reviewed by me, Teleradiologist Report - Risk of complications Low Risk: Low risk of morbidity from additional dx testing or treatment - Departure Departure Disposition: Home Clinical Impression: Altered mental status, Hypoglycemia Condition: Stable Critical Care Time: No Referrals: HOSPITAL,'S [Primary Care Provider] - Follow up/PCP as directed Additional Instructions: Monitor your blood sugar closely. Make sure you eat before you take your insulin medication. Self urinary bladder catheterization at least once daily. Continue your other medications as prescribed. Call your urologist today. Follow-up with your primary care provider and urologist today by phone to make arrangements for further evaluation and management.
[2022-10-27] MEDS ORDERED: DEXTROSE 10% 250 ML 250 ML IV SCH (07:30)
[2022-10-27 07:35] VITALS: PULSE 95; RESP 17; O2SAT 93
[2022-10-27 07:35] LABS: Appearance Clear (Clear); Bacteria None Seen /HPF (None Seen); Bilirubin Negative (Negative); Blood Negative (Negative); Epithelial Cells Rare /HPF (None Seen); Glucose, Urine 250 mg/dL (Negative); Ketones Negative (Negative); Leukocyte Esterase Small (Negative); Nitrite Negative (Negative); Ph 5.5 (4.6-8.0); Protein,Urine Dip Negative (Negative); RBC 0-2 /HPF (0-5); Urobilinogen 0.2 mg/dL (0.2)
[2022-10-27 07:37] LABS: ADD URINE CULTURE? YES (NO); Budding Yeast Few /HPF (None Seen)
[2022-10-27 07:45] LABS: Amphetamine,Urine NEGATIVE (NEGATIVE); Barbiturate,Urine NEGATIVE (NEGATIVE); Benzodiazepine,Urine NEGATIVE (NEGATIVE); Cocaine,Urine NEGATIVE (NEGATIVE); Methadone,Urine NEGATIVE (NEGATIVE); Opiate,Urine POSITIVE (NEGATIVE); PCP,Urine NEGATIVE (NEGATIVE); THC,Urine NEGATIVE (NEGATIVE)
[2022-10-27 08:03] VITALS: BP 104/76
== END 2022-10-27 07:53 | disposition home or self-care (01) ==
LOC: ED 05:18
DX: E11.649 Type 2 diabetes mellitus with hypoglycemia without coma (principal); I10 Essential (primary) hypertension; Z79.4 Long term (current) use of insulin; Z28.310 Unvaccinated for COVID-19; Z72.0 Tobacco use
CPT/HCPCS: 36000; 36415; 51702; 70450; 80053; 80143; 80179; 80307; 81001; 82077; 82140; 82947; 83605; 84436; 84443; 85025; 85610; 87086; 93041; 94760; 96365; 99284